=== PATIENT | male | born 1990 | race African-American/Black ===

== ENCOUNTER 2023-01-18 13:33 | Emergency (ER) | payer MEDICAID ==
[~2023-01-18] VITALS: Ht 172.7 cm; Wt 61.0 kg
[2023-01-18 14:11] VITALS: BP 132/77; PULSE 90; RESP 16; TEMP 98.9; O2SAT 98
== END 2023-01-18 16:49 | disposition left against medical advice (07) ==
LOC: ER 13:33
DX: Z53.21 Procedure and treatment not carried out due to patient leaving prior to being seen by health care provider (principal)
CPT/HCPCS: 99281

== ENCOUNTER 2023-10-27 15:23 | Emergency (ER) | payer OTHER ==
[~2023-10-27] VITALS: Ht 175.3 cm; Wt 61.4 kg
[2023-10-27 15:27] VITALS: O2SAT 100
[2023-10-27 16:30] LABS: HEMATOCRIT. 50.5 % (42.0-52.0); MEAN CORPUSCULAR HEMOGLOBIN 32.5 pg (28.0-32.0); MEAN CORPUSCULAR HGB CONC 35.5 g/dL (31.0-37.0); MEAN CORPUSCULAR VOLUME 91.5 fL (80.0-94.0); PLATELET 412 x1000/uL (130-400); RED BLOOD CELL COUNT 5.52 mill/uL (4.7-6.1); RED CELL DISTRIBUTION WIDTH 12.9 % (11.6-14.6); WHITE BLOOD COUNT 8.1 x1000/uL (4.5-11.0)
[2023-10-27 16:32] LABS: DIFFERENTIAL COMMENT 1
[2023-10-27 16:36] LABS: CHLORIDE 91 mEq/L (98-107); SODIUM 130 mEq/L (136-145)
[2023-10-27 16:37] LABS: CARBON DIOXIDE 28 mEq/L (21-32)
[2023-10-27 16:38] LABS: CALCIUM 11.1 mg/dL (8.7-10.4)
[2023-10-27 16:42] LABS: CREATININE 0.9 mg/dL (0.6-1.3)
[2023-10-27 16:43] LABS: GLUCOSE 132 mg/dL (70-105); UREA NITROGEN BLOOD 13 mg/dL (9-23)
[2023-10-27 16:44] LABS: ALANINE AMINOTRANSFERASE 31 IU/L (10-49); ALBUMIN 5.1 g/dL (3.2-4.8); ASPARTATE AMINOTRANSFERASE 30 IU/L (<34)
[2023-10-27 16:45] LABS: BILIRUBIN DIRECT 0.3 mg/dL (<=3.0); BILIRUBIN TOTAL 1.1 mg/dL (0.1-1.0); PROTEIN TOTAL 9.4 g/dL (6.0-8.3)
[2023-10-27 16:58] LABS: POTASSIUM 2.4 mEq/L (3.5-5.1)
[2023-10-27 18:05] LABS: PLATELET ESTIMATE INCREASED
[2023-10-27] MEDS: POTASSIUM CHLORIDE 20MEQ/PACKET PO ONE (18:30)
[2023-10-27] MEDS: KCL 20MEQ/100ML PREMIX 100 ML IV ONE (18:40)
[2023-10-27] MEDS: MORPHINE SULFATE 4 MG/ML INJ (FOR IV/IM USE) IV ONE ×2 (18:49→23:27)
[2023-10-27] MEDS: ONDANSETRON HCL 4MG/2ML INJ IV ONE (18:55)
[2023-10-27] MEDS: TRAMADOL 50MG TABLET PO ONE (20:48)
[2023-10-27] MEDS: CHLORDIAZEPOXIDE 25MG CAPSULE PO ONE (23:44)
[2023-10-28 03:27] VITALS: BP 145/97; PULSE 99; RESP 16; TEMP 98.4
== END 2023-10-28 03:29 | disposition left against medical advice (07) ==
LOC: ER 15:23
DX: E87.6 Hypokalemia (principal); K29.80 Duodenitis without bleeding; F12.10 Cannabis abuse, uncomplicated; F10.10 Alcohol abuse, uncomplicated; Y90.9 Presence of alcohol in blood, level not specified
CPT/HCPCS: 80076; 80048; 85025; 36415; 93005; 96365; 96375; 96376; 99285; J2405; J3480; J2270; Z7610

== ENCOUNTER 2024-04-10 01:29 | Emergency (ER) | payer OTHER ==
[~2024-04-10] VITALS: Ht 182.9 cm; Wt 80.0 kg
[2024-04-10 01:29] VITALS: BP 145/95; PULSE 100; RESP 16; TEMP 98.7; O2SAT 100
[2024-04-10 03:55] LABS: BASOPHILS % 0.5 % (0.0-2.0); EOSINOPHILS % 0.5 % (0.0-5.0); HEMATOCRIT. 44.7 % (42.0-52.0); HEMOGLOBIN. 15.5 g/dL (14.0-18.0); LYMPHOCYTES % 17.4 % (20.0-50.0); MEAN CORPUSCULAR HEMOGLOBIN 31.8 pg (28.0-32.0); MEAN CORPUSCULAR HGB CONC 34.7 g/dL (31.0-37.0); MEAN CORPUSCULAR VOLUME 91.5 fL (80.0-94.0); MEAN PLATELET VOLUME 8.4 fl (7.4-10.4); MONOCYTES % 6.7 % (2.0-8.0); NEUTROPHILS % 74.9 % (40.0-76.0); PLATELET 383 x1000/uL (130-400); RED BLOOD CELL COUNT 4.89 mill/uL (4.7-6.1); RED CELL DISTRIBUTION WIDTH 12.8 % (11.6-14.6); WHITE BLOOD COUNT 9.4 x1000/uL (4.5-11.0)
[2024-04-10 04:31] LABS: CHLORIDE 100 mEq/L (98-107); SODIUM 137 mEq/L (136-145)
[2024-04-10 04:32] LABS: CALCIUM 10.1 mg/dL (8.7-10.4); CARBON DIOXIDE 24 mEq/L (21-32)
[2024-04-10 04:37] LABS: CREATININE 0.9 mg/dL (0.6-1.3); GLUCOSE 136 mg/dL (70-105); UREA NITROGEN BLOOD 11 mg/dL (9-23)
[2024-04-10] MEDS: ONDANSETRON HCL 4MG TABLET PO ONE (04:45)
[2024-04-10 05:07] LABS: ALANINE AMINOTRANSFERASE 155 IU/L (10-49)
[2024-04-10 05:08] LABS: ALBUMIN 4.6 g/dL (3.2-4.8); ASPARTATE AMINOTRANSFERASE 438 IU/L (<34); BILIRUBIN DIRECT 0.9 mg/dL (<=3.0); BILIRUBIN TOTAL 2.7 mg/dL (0.1-1.0); PROTEIN TOTAL 8.4 g/dL (6.0-8.3)
[2024-04-10 05:36] LABS: POTASSIUM 2.4 mEq/L (3.5-5.1)
[2024-04-10] MEDS ORDERED: SODIUM CHLORIDE 0.9% 1,000 ML IV ONE (05:45)
[2024-04-10] MEDS ORDERED: KCL 20MEQ/100ML PREMIX 100 ML IV ONE (05:45)
== END 2024-04-10 05:45 | disposition left against medical advice (07) ==
LOC: ER 01:29
DX: R10.9 Unspecified abdominal pain (principal)
CPT/HCPCS: 99283; 80076; 80048; 83690; 85025; 36415; Q0162; J7030

== ENCOUNTER 2024-11-05 21:17 | Emergency (ER) | payer OTHER ==
[2024-11-05 21:26] VITALS: PULSE 81; RESP 20; O2SAT 99
== END 2024-11-05 22:30 | disposition left against medical advice (07) ==
LOC: ER 21:17
DX: R07.89 Other chest pain (principal); Z53.21 Procedure and treatment not carried out due to patient leaving prior to being seen by health care provider